=== PATIENT | female | born 1995 | race Hispanic/Latino ===

== ENCOUNTER 2020-07-07 03:42 | Emergency (ER) | payer OTHER ==
[~2020-07-07] VITALS: Ht 167.6 cm; Wt 115.5 kg
[2020-07-07] MEDS ORDERED: ALBU83IN INH (03:49)
[2020-07-07] MEDS ORDERED: diphenhydrAMINE 50MG/ML VIAL (J1200) IV ONE (04:30)
[2020-07-07] MEDS ORDERED: KETOROLAC 30 MG/ML 1ML VIAL IV ONE (04:30)
[2020-07-07] MEDS ORDERED: NS 1,000 ML IV ONE (04:30)
[2020-07-07] MEDS ORDERED: ACETAMINOPHEN 500 MG TAB PO ONE (04:30)
[2020-07-07] MEDS ORDERED: METOCLOPRAMIDE INJ 10MG/2ML VIAL (J2765 PER 1) IV ONE (04:30)
[2020-07-07] MEDS ORDERED: dexameTHASONE 20MG/5ML VIAL (J1100 PER 1MG) IV ONE (05:45)
[2020-07-07] MEDS ORDERED: MAG SULF 1GM/100ML (MAG RUN) 1 GM in IV 1 EA IV ONE (05:45)
[2020-07-07 06:45] VITALS: BP 125/66
== END 2020-07-07 07:00 | disposition home or self-care (01) ==
LOC: M ED 03:42
DX: G43.909 Migraine, unspecified, not intractable, without status migrainosus (principal); J45.909 Unspecified asthma, uncomplicated; Z91.018 Allergy to other foods; Z91.013 Allergy to seafood; Z82.0 Family history of epilepsy and other diseases of the nervous system
CPT/HCPCS: 80047; 84702; 96361; 96374; 96375; 99284; J1100; J1200; J1885; J2765; J3475

== ENCOUNTER 2020-10-02 16:27 | Emergency (ER) | payer OTHER ==
[~2020-10-02] VITALS: Ht 167.6 cm; Wt 117.5 kg
[~2020-10-02 16:27] MED LIST: ALBU83IN INH
[2020-10-02] MEDS ORDERED: VENTAER INH (16:39)
[2020-10-02] MEDS ORDERED: ALBU8.5H INH (16:39)
[2020-10-02] MEDS ORDERED: predniSONE 20 MG TAB PO ONE (17:45)
--- NOTE | 2020-10-02 18:01 | REP ---
INDICATION: wheezing, SOB. COMPARISON: No comparison study. TECHNIQUE: Portable upright AP chest radiograph. FINDINGS: The lungs are well inflated and free of infiltrate. Pleural angles are sharp. Heart size is normal. Pulmonary vasculature is not increased. IMPRESSION: No active disease. <Electronically signed by Clarence Ruffin > 10/02/20 [id number]
[2020-10-02 18:39] LABS: BASO # 0.1 10^3/uL (0.0-0.2); BASO % 0.7 % (0.0-1.0); EOS # 0.3 10^3/uL (0.0-0.5); EOS % 2.7 % (0.0-3.0); HEMATOCRIT 41.7 % (36.0-47.0); LYMPH # 2.8 10^3/uL (1.5-5.0); LYMPH % 26.2 % (24.0-44.0); MEAN CORPUSCULAR HEMOGLOBIN 28.4 pg (27.0-33.0); MEAN CORPUSCULAR HGB CONC 33.6 g/dl (32.0-36.5); MEAN CORPUSCULAR VOLUME 84.6 fl (80.0-96.0); MONO # 0.6 10^3/uL (0.0-0.8); MONO % 5.6 % (0.0-5.0); NEUTROPHILS # 6.8 10^3/uL (1.5-8.5); NEUTROPHILS % 64.4 % (36.0-66.0); PLATELET COUNT, AUTOMATED 403 10^3/uL (150-450); RED BLOOD COUNT 4.93 10^6/uL (4.00-5.40); WHITE BLOOD COUNT 10.5 10^3/uL (4.0-10.0)
[2020-10-02 19:11] VITALS: BP 140/94
[2020-10-02 19:27] LABS: RSV AMPLIFICATION NEGATIVE (NEGATIVE)
[2020-10-02] MEDS ORDERED: PRED20TA PO (19:32)
[2020-10-02] MEDS ORDERED: PROAAER10 INH (19:32)
[2020-10-02] MEDS ORDERED: NAPR-837 PO (19:32)
== END 2020-10-02 19:39 | disposition home or self-care (01) ==
LOC: M ED 16:27
DX: J45.901 Unspecified asthma with (acute) exacerbation (principal); R07.89 Other chest pain; R06.02 Shortness of breath; R06.2 Wheezing; Z91.018 Allergy to other foods; Z91.013 Allergy to seafood

== ENCOUNTER → 2020-10-16 | Outpatient (CLI) | payer OTHER ==
[~2020-10-16] MED LIST changes: +ALBU8.5H INH; +NAPR-837 PO; +PRED20TA PO; +PROAAER10 INH; +VENTAER INH
--- NOTE | 2020-10-16 13:14 | REPPI ---
INDICATION: RIGHT KNEE PAIN COMPARISON: None. TECHNIQUE: AP and lateral views of the right knee FINDINGS: Joint spaces, and surrounding soft tissues appear normal. No evidence for acute or healed injury. No effusion. No significant swelling. No subcutaneous emphysema or foreign body. IMPRESSION: Normal right knee radiographs. <Electronically signed by Reynold Juan > 10/16/20 [id number]
== END ==
LOC: M PLAIMG 10:24
PROVIDERS: ATTEND Physician Assistant
DX: M25.561 Pain in right knee (principal)

== ENCOUNTER → 2020-10-16 | Outpatient (REF) | payer OTHER ==
[2020-10-16 14:44] LABS: HEMATOCRIT 41.9 % (36.0-47.0); HEMOGLOBIN 13.6 g/dl (12.0-15.5); MEAN CORPUSCULAR HEMOGLOBIN 28.2 pg (27.0-33.0); MEAN CORPUSCULAR HGB CONC 32.5 g/dl (32.0-36.5); MEAN CORPUSCULAR VOLUME 86.9 fl (80.0-96.0); PLATELET COUNT, AUTOMATED 368 10^3/uL (150-450); RED BLOOD COUNT 4.82 10^6/uL (4.00-5.40); WHITE BLOOD COUNT 10.3 10^3/uL (4.0-10.0)
[2020-10-16 15:18] LABS: BLOOD UREA NITROGEN 7 MG/DL (7-18); CARBON DIOXIDE LEVEL 27 MEQ/L (21-32); CHLORIDE LEVEL 102 MEQ/L (98-107); CREATININE FOR GFR 0.72 MG/DL (0.55-1.30); GLOMERULAR FILTRATION RATE > 60.0 (>60); GLUCOSE, FASTING 94 MG/DL (70-100); POTASSIUM SERUM 4.3 MEQ/L (3.5-5.1); SODIUM LEVEL 138 MEQ/L (136-145)
[2020-10-16 15:19] LABS: ALT/SGPT 32 U/L (12-78); BILIRUBIN,TOTAL 0.3 MG/DL (0.2-1.0); CALCIUM LEVEL 9.7 MG/DL (8.5-10.1); CHOLESTEROL LEVEL 245 MG/DL (<200); CHOLESTEROL RISK RATIO 4.152 (<5); HDL CHOLESTEROL 59 MG/DL (>40); LDL CHOLESTEROL 141 MG/DL (<100); NON-HDL-C 186 MG/DL; TOTAL PROTEIN 7.5 GM/DL (6.4-8.2); TRIGLYCERIDES LEVEL 226 MG/DL (<150)
[2020-10-16 16:33] LABS: TOTAL 25(OH) VITAMIN D 9.6 NG/ML (30.0-100.0)
[2020-10-16 19:46] LABS: HEMOGLOBIN A1c 5.6 %
== END ==
LOC: M SFHCPLAZ 10:24
PROVIDERS: ATTEND Physician Assistant
DX: J45.40 Moderate persistent asthma, uncomplicated (principal); Z00.00 Encounter for general adult medical examination without abnormal findings; Z13.29 Encounter for screening for other suspected endocrine disorder; E28.2 Polycystic ovarian syndrome; Z13.220 Encounter for screening for lipoid disorders

== ENCOUNTER 2020-12-09 07:24 | Emergency (ER) | payer MEDICAID ==
[~2020-12-09] VITALS: Ht 167.6 cm; Wt 118.6 kg
[2020-12-09] MEDS ORDERED: NAPR220C14 PO (07:36)
[2020-12-09] MEDS ORDERED: FLOV100A (07:36)
[2020-12-09] MEDS ORDERED: diphenhydrAMINE 50MG/ML VIAL (J1200) IV ONE (07:55)
[2020-12-09] MEDS ORDERED: METOCLOPRAMIDE INJ 10MG/2ML VIAL (J2765 PER 1) IV ONE (07:55)
[2020-12-09] MEDS ORDERED: ACETAMINOPHEN 500 MG TAB PO ONE (07:55)
[2020-12-09] MEDS ORDERED: NS 1,000 ML IV ONE (07:55)
[2020-12-09 10:41] VITALS: BP 135/84
== END 2020-12-09 10:44 | disposition home or self-care (01) ==
LOC: M ED 07:24
DX: G43.909 Migraine, unspecified, not intractable, without status migrainosus (principal); R11.0 Nausea; J45.909 Unspecified asthma, uncomplicated; E28.2 Polycystic ovarian syndrome; J34.9 Unspecified disorder of nose and nasal sinuses; F12.10 Cannabis abuse, uncomplicated; E66.9 Obesity, unspecified; Z79.899 Other long term (current) drug therapy; Z91.018 Allergy to other foods; Z91.013 Allergy to seafood
CPT/HCPCS: 80047; 84702; 96361; 96374; 96375; 99284; J1200; J2765

== ENCOUNTER → 2020-12-13 | Outpatient (CLI) | payer MEDICAID, OTHER ==
[~2020-12-13] MED LIST changes: -ALBU83IN INH; +ALBU83IN NEB; +AMOX500C PO; +FLOV100A INH; +NAPR220C14 PO
--- NOTE | 2020-12-13 09:22 | REP ---
INDICATION: PAIN IN RIGHT KNEE. COMPARISON: Radiographs 10/16/2020. TECHNIQUE: Multiple sequences obtained in the axial, coronal and sagittal planes. FINDINGS: Menisci: There is diffuse increased signal within the peripheral anterior horn of the medial meniscus likely representing a chronic tear and mucoid degeneration. There are 3 small cystic structures along the anterior margin of that portion of meniscus, the largest is centrally and measures approximately 8 x 5 mm. Cruciate ligaments: Intact. Collateral ligaments: Intact. Extensor mechanism/patellar retinacula: Intact. Cartilage: Smooth, no osteochondral defect. There is mild global chondromalacia. There is a more moderate degree of chondromalacia of the central portion of the patella. Bone marrow: Normal signal, no edema or occult fracture. Joint fluid: There is a very small joint effusion. Popliteal region: No cyst. IMPRESSION: There is diffuse increased signal within the peripheral anterior horn of the medial meniscus likely representing a chronic tear and mucoid degeneration. Three small, subcentimeter cysts are seen along the anterior aspect of that portion of the meniscus. Mild global chondromalacia with more moderate degree of chondromalacia of the central patella. <Electronically signed by Fermin Winston > 12/13/20 [id number]
== END ==
LOC: M RAD 07:10
PROVIDERS: ATTEND Orthopaedic Surgery
DX: M22.41 Chondromalacia patellae, right knee (principal)

== ENCOUNTER 2020-12-16 09:26 | Observation (INO) | payer MEDICAID ==
[~2020-12-16] VITALS: Ht 167.6 cm; Wt 118.9 kg
[~2020-12-16 09:26] MED LIST changes: -AMOX500C PO
[2020-12-16] MEDS ORDERED: COMBIVENT RESPIMAT 100-20MCG INHALER 4GM INH STA (09:43)
[2020-12-16] MEDS ORDERED: methylPREDNISolone 125MG 2ML VIAL IV ONE (10:10)
[2020-12-16] MEDS ORDERED: NS 1,000 ML IV ONE (10:10)
[2020-12-16 11:03] LABS: VENOUS BASE EXCESS -1.6 (-2.0-2.0); VENOUS O2 SATURATION 64.1 % (60.0-80.0); VENOUS PARTIAL PRESSURE CO2 43.6 mmHg (38.0-50.0); VENOUS PH 7.359 UNITS (7.330-7.430); VENOUS STANDARD HCO3 22.3 MEQ/L; VENOUS TOTAL CO2 25.4 MEQ/L (24.0-28.0)
[2020-12-16 11:04] LABS: BASO # 0.1 10^3/uL (0.0-0.2); BASO % 0.5 % (0.0-1.0); EOS # 0.2 10^3/uL (0.0-0.5); EOS % 1.3 % (0.0-3.0); HEMATOCRIT 43.2 % (36.0-47.0); HEMOGLOBIN 14.5 g/dl (12.0-15.5); LYMPH # 1.7 10^3/uL (1.5-5.0); LYMPH % 11.8 % (24.0-44.0); MEAN CORPUSCULAR HEMOGLOBIN 29.4 pg (27.0-33.0); MEAN CORPUSCULAR HGB CONC 33.6 g/dl (32.0-36.5); MEAN CORPUSCULAR VOLUME 87.6 fl (80.0-96.0); MONO # 0.8 10^3/uL (0.0-0.8); MONO % 5.2 % (2.0-8.0); NEUTROPHILS # 11.8 10^3/uL (1.5-8.5); NEUTROPHILS % 80.8 % (36.0-66.0); PLATELET COUNT, AUTOMATED 373 10^3/uL (150-450); RED BLOOD COUNT 4.93 10^6/uL (4.00-5.40); WHITE BLOOD COUNT 14.6 10^3/uL (4.0-10.0)
--- NOTE | 2020-12-16 11:19 | REP ---
INDICATION: diff breathing wheezing. COMPARISON: 10/02/2020. TECHNIQUE: SINGLE PORTABLE AP VIEW OF THE CHEST WAS PERFORMED. FINDINGS: THERE IS NO ACUTE INFILTRATE OR PULMONARY EDEMA. LUNGS ARE CLEAR. HEART IS NOT SIGNIFICANTLY ENLARGED. MEDIASTINAL SILHOUETTE IS UNREMARKABLE. THE VISUALIZED OSSEOUS STRUCTURES ARE INTACT. IMPRESSION: NO ACUTE PULMONARY DISEASE. <Electronically signed by Fermin Winston > 12/16/20 [id number]
[2020-12-16] MEDS ORDERED: ONDANSETRON 4MG/2ML VIAL IV ONE (11:30)
[2020-12-16] MEDS ORDERED: ACETAMINOPHEN 325 MG TAB PO ONE (11:30)
[2020-12-16] MEDS: MAG SULF 1GM/100ML (MAG RUN) 1 GM in IV 1 EA IV SCH ×2 (11:43→12:02)
[2020-12-16] MEDS ORDERED: IPRATROPIUM 0.5MG/ALBUTEROL 2.5MG INH SOL UD 3ML (DUONEB) NEB PRN (12:25)
[2020-12-16] MEDS ORDERED: ALBUTEROL 90 MCG/ACT 8GM HFA INHALER INH ONE (12:40)
[2020-12-16 12:50] VITALS: O2SAT 92
[2020-12-16] MEDS ORDERED: ALBUTEROL SULFATE 2.5 MG/0.5 ML INH NEB SOLN NEB PRN (13:25)
[2020-12-16] MEDS: IPRATROPIUM 0.5MG/ALBUTEROL 2.5MG INH SOL UD 3ML (DUONEB) NEB SCH ×3 (13:40→20:48)
--- NOTE | 2020-12-16 14:10 | HPEPDOC ---
[facility] Medical History & Physical Date of Admission Dec 16, 2020 Date of Service: Dec 16, 2020 Attending Physician: Dayana Zamudio MD History and Physical CHIEF COMPLAINT: increased SOB HISTORY OF PRESENT ILLNESS: Patient is a 25 her old female with past medical history of asthma, migraine headaches, PCOS who presented to [facility] emergency room with the chief complaint of increased shortness of breath over the past 2 days. The patient states she's been out of her asthma medications for 2 weeks. She's had increasing coughing nonproductive, wheezing, borderline fever at home, nausea and pleuritic chest pain worse with activity and with deep breathing and coughing. She states her partner has also been sick as well and feels as though she picked up whatever he might of had. She denies diarrhea, abdominal pain, chills, lightheadedness, dizziness, weakness. In the emergency room vital signs show temperature 99.1, respiratory rate 2030, blood pressure 179/77, pulse 52177a, 92% on room air. On arrival the patient was in mild respiratory distress with tripoding, nasal flaring. She was given 125 methylprednisolone, IV magnesium and multiple Combivent treatments which did not improve her breathing. She was given 1 nebulizer treatment which seemed to help some. Resp panel: neg COVID, + Rhinovirus/enterovirus. When ambulated the patient to maintain O2 sat above 92%; however, her heart rate shot up into the 130's. On examination she continued to have wheezing bilaterally, occasional rhonchi. She also sounded congested. Chest x-ray was negative for acute changes. The patient was admitted under observation status for acute asthma exacerbation. REVIEW OF SYSTEMS: Neg except for what is mentioned above PAST MEDICAL HISTORY: Asthma Migraine headaches PCOS PAST SURGICAL HISTORY: none FAMILY HISTORY: HTN, DM SOCIAL HISTORY: Denies smoking, illicit drug use, alcohol use. Lives locally with partner. Full Code. PCP locally. ALLERGIES: Please see below. HOME MEDICATIONS: Please see below. PHYSICAL EXAMINATION: VS: temperature 99.1, respiratory rate 2030, blood pressure 179/77, pulse 37902q, 92% on room air CONSTITUTIONAL: SOB with conversation but not in overt respiratory distress, AAO x 3 EYES: PERRLA, EOM intact, corrective lenses in place HENT, MOUTH: Normocephalic, atraumatic, moist mucous membranes NECK: SUPPLE, no JVD, no lymphadenopathy, no carotid bruit, large diameter CV: sinus tachycardia , S1S2 normal, no murmurs/rubs/gallops RESPIRATORY: Exp wheezing and occasional rhonchi bilaterally, no rales GI: obese abd, BS positive in 4 quadrants, soft, nontender, nondistended, no rebound or guarding, no organomegaly : Deferred MUSCULOSKELETAL: Normal ROM. No cyanosis, clubbing, swelling, joint deformity, extremity edema INTEGUMENTARY: Intact, no rashes, no lesions, no erythema NEUROLOGIC: Cranial Nerves II-XII are intact, no focal deficits PSYCHIATRIC: Mood and affect are normal LABORATORY DATA: Please see below IMAGING: CXR: No acute pulmonary disease ASSESSMENT: 25 her old female with past medical history of asthma, migraine headaches, PCOS admitted under observation status for acute asthma exacerbation likely 2/2 to Rhinovirus/Enterovirus. PLAN: Acute asthma exacerbation likely 2/2 to likely 2/2 to Rhinovirus/Enterovirus, ran out of home medications -WBC 14K, maintaining O2 >90%; however, continued wheezing, rhonchi, SOB with speaking after treatment in ED -HR incr to 130's with ambulation -Starting on duonebs ATC, albuterol PRN, methylprednisolone 60 mg IV Q12Hrs, peak flow daily, walking desat testing in the AM -At discharge, refill all home meds including home neb meds -Encourage conservative treatment for common cold component: symptomatic management and hydration during day Migraine headaches -Stable PCOS -F/u o/p DVT px -Enoxaparin DISPOSITION: Admitted under observation status. Plan is discharge when medically improved. Vital Signs Vital Signs Date Time Temp Pulse Resp B/P (MAP) Pulse Ox O2 Delivery O2 Flow Rate FiO2 12/16/20 13:36 98.0 122 180/91 (120) 95 Nasal Cannula 2.0 12/16/20 10:07 30 Laboratory Data Labs 24H Laboratory Tests 2 12/16/20 10:23: SARS Antigen (LFIA) NEGATIVE 12/16/20 10:43: POC Glucose (Misc Panel) 96, POC Sodium (Misc Panel) 138, POC Potassium (Misc Panel) 4.7, POC Chloride (Misc Panel) 103, POC Total CO2 (Misc Panel) 27.0, POC Blood Urea Nitrogen (Misc Panel 8, POC Ionized Calcium (Misc Panel) 4.5, POC Creatinine (Misc Panel) 0.5L, POC Hematocrit (Misc Panel) 45.0 12/16/20 10:48: Immature Granulocyte % (Auto) 0.4, Neutrophils (%) (Auto) 80.8H, Lymphocytes (%) (Auto) 11.8L, Monocytes (%) (Auto) 5.2, Eosinophils (%) (Auto) 1.3, Basophils (%) (Auto) 0.5, Neutrophils # (Auto) 11.8H, Lymphocytes # (Auto) 1.7, Monocytes # (Auto) 0.8, Eosinophils # (Auto) 0.2, Basophils # (Auto) 0.1, Nucleated Red Blood Cells % (auto) 0.0, Blood Gas Bicarbonate Standard 22.3, Venous Blood pH 7.359, Venous Blood Partial Pressure CO2 43.6, Venous Blood Partial Pressure O2 33.0, Venous Blood Total Carbon Dioxide 25.4, Venous Blood HCO3 24.0, Venous Blood Oxygen Saturation 64.1, Venous Blood Base Excess -1.6, POC Beta HCG, Quantitative < 5.0 CBC/BMP Laboratory Tests 12/16/20 10:48 Microbiology Microbiology 12/16/20 Respiratory Virus Panel (PCR) ([facility]) - Final, Complete Human Rhinovirus/Enterovirus 12/16/20 Blood Culture, Received Pending 12/16/20 Group A Streptococcus Screen ([facility]), Received Pending 12/16/20 Blood Culture, Received Pending Home Medications Scheduled Fluticasone Propionate (Flovent Diskus) 100 Mcg Blst.w.dev, 1 PUFF INH BID Scheduled PRN Albuterol Sulf (Albuterol Sulfate) 2.5 Mg/3 Ml Vial.neb, 1 VIAL NEB Q4H PRN for SOB/WHEEZING Albuterol Sulfate (Albuterol Sulfate Hfa) 8.5 Gm Hfa.aer.ad, 2 PUFFS INH Q6H PRN for SHORTNESS OF BREATH Allergies Coded Allergies: Grape (Verified Allergy, Mild, ITCHY THROAT, 07/07/20) SEAFOOD (Verified Allergy, Mild, RED SKIN & ITCHY THROAT, 07/07/20) A-FIB/CHADSVASC A-FIB History Current/History of A-Fib/PAF?: No Current PO Anticoag Therapy: No Age/Risk Factor Scoring CHADSVASC: CHADSVASC Response (Comments) Value Age Risk Factor Age < 65 years old 0 Gender Risk Factor Female 1 Hx of CHF No 0 Hx of HTN No 0 Hx of Stroke/TIA/or VTE No 0 Hx of Diabetes No 0 Hx of Vascular Disease No 0 Total 1 Treatment Treatment ordered: Other Other anticoagulant ordered: Dayana Jennings MD Dec 16, 2020 14:10
[2020-12-16 14:42] VITALS: BP 143/96
[2020-12-16] MEDS: ACETAMINOPHEN TAB 650MG DOSE (2X325MG) PO PRN ×2 (16:06→22:59)
[2020-12-16 17:30] VITALS: BP 139/92
[2020-12-16] MEDS: KETOROLAC 30 MG/ML 1ML VIAL IV PRN (17:38)
[2020-12-16 22:00] VITALS: BP 131/84
[2020-12-16] MEDS: methylPREDNISolone 125MG 2ML VIAL IV SCH (22:54)
[2020-12-17] MEDS: IPRATROPIUM 0.5MG/ALBUTEROL 2.5MG INH SOL UD 3ML (DUONEB) NEB SCH ×3 (02:44→13:37)
[2020-12-17 06:00] VITALS: BP 115/73
[2020-12-17 06:26] LABS: HEMATOCRIT 40.8 % (36.0-47.0); HEMOGLOBIN 13.3 g/dl (12.0-15.5); MEAN CORPUSCULAR HEMOGLOBIN 29.4 pg (27.0-33.0); MEAN CORPUSCULAR HGB CONC 32.6 g/dl (32.0-36.5); MEAN CORPUSCULAR VOLUME 90.1 fl (80.0-96.0); PLATELET COUNT, AUTOMATED 380 10^3/uL (150-450); RED BLOOD COUNT 4.53 10^6/uL (4.00-5.40); WHITE BLOOD COUNT 15.9 10^3/uL (4.0-10.0)
[2020-12-17 06:49] LABS: BLOOD UREA NITROGEN 14 MG/DL (7-18); CARBON DIOXIDE LEVEL 23 MEQ/L (21-32); CHLORIDE LEVEL 107 MEQ/L (98-107); CREATININE FOR GFR 0.67 MG/DL (0.55-1.30); GLOMERULAR FILTRATION RATE > 60.0 (>60); GLUCOSE, FASTING 175 MG/DL (70-100); POTASSIUM SERUM 4.4 MEQ/L (3.5-5.1); SODIUM LEVEL 137 MEQ/L (136-145)
[2020-12-17] MEDS: ENOXAPARIN 40MG/0.4ML SYRINGE (J1650 PER 10MG) SC SCH (09:30)
[2020-12-17] MEDS: KETOROLAC 30 MG/ML 1ML VIAL IV PRN (10:06)
[2020-12-17] MEDS: methylPREDNISolone 125MG 2ML VIAL IV SCH ×2 (10:07→22:33)
[2020-12-17] MEDS: ACETAMINOPHEN TAB 650MG DOSE (2X325MG) PO PRN (11:55)
[2020-12-17 14:00] VITALS: BP 132/72
--- NOTE | 2020-12-17 15:42 | ECGEPIP ---
[facility] - ED Test Date: 2020-12-16 Pat Name: SHOSHANA PELAEZ Department: Room: [place] [address] Gender: Female Offensive Coordinator: RASHAD : 1995 Requested By: MICHELLE Goss PA-C Order Number: [id number] Reading MD: Petr Vasquez Measurements Intervals [place] Rate: 113 P: 63 TN: 122 QRS: 56 QRSD: 96 T: 51 QT: 338 QTc: 463 Interpretive Statements Sinus tachycardia Comparison tracing not on file Electronically Signed on 12-17-2020 15:41:59 EDT by Petr Vasquez
[2020-12-17] MEDS ORDERED: LEVALBUTEROL 1.25 MG/0.5 ML CONCENTRATE NEB NEB PRN (18:05)
--- NOTE | 2020-12-17 18:08 | IPNPDOC ---
Date Seen The patient was seen on 12/17/20. Progress Note SUBJECTIVE: Peak flow 250, 50% of predicted goal. Gave good effort per respiratory. Continues to have wheezing, feels mildly improved. Denies chest pain, fevers, chills, coughing, n/v/d. OBJECTIVE: PHYSICAL EXAMINATION: VS: Please see below CONSTITUTIONAL: SOB with conversation but not in overt respiratory distress, AAO x 3 EYES: PERRLA, EOM intact, corrective lenses in place HENT, MOUTH: Normocephalic, atraumatic, moist mucous membranes NECK: SUPPLE, no JVD, no lymphadenopathy, no carotid bruit, large diameter CV: sinus tachycardia , S1S2 normal, no murmurs/rubs/gallops RESPIRATORY: Exp wheezing and occasional rhonchi bilaterally persist , no rales GI: obese abd, BS positive in 4 quadrants, soft, nontender, nondistended, no rebound or guarding, no organomegaly : Deferred MUSCULOSKELETAL: Normal ROM. No cyanosis, clubbing, swelling, joint deformity, extremity edema INTEGUMENTARY: Intact, no rashes, no lesions, no erythema NEUROLOGIC: Cranial Nerves II-XII are intact, no focal deficits PSYCHIATRIC: Mood and affect are normal LABORATORY DATA: Please see below IMAGING: CXR: No acute pulmonary disease ASSESSMENT: 25 her old female with past medical history of asthma, migraine headaches, PCOS admitted under observation status for acute asthma exacerbation likely 2/2 to Rhinovirus/Enterovirus. PLAN: Acute asthma exacerbation likely 2/2 to likely 2/2 to Rhinovirus/Enterovirus, ran out of home medications -WBC 15.9K (partly likely steroid induced), did well with walking test maintaining O2 >93%; however, still very wheezy -Peak flow 250, 50% of predicted goal -HR incr and likely 2/2 to albuterol tx -D/gracie duonebs ATC, albuterol PRN -Started on levalbuterol, c/w methylprednisolone 60 mg IV Q12Hrs, peak flow daily -At discharge, refill all home meds including home neb meds -Encourage conservative treatment for common cold component: symptomatic m anagement and hydration during day Migraine headaches -Stable PCOS -F/u o/p DVT px -Enoxaparin DISPOSITION: Remains under observation status. If stays longer than 4/12 will make inpatient. Plan is discharge home when medically improved. VS, I&O, 24H, Fishbone Vital Signs/I&O Vital Signs Date Time Temp Pulse Resp B/P (MAP) Pulse Ox O2 Delivery O2 Flow Rate FiO2 12/17/20 14:00 98.5 126 17 132/72 (92) 94 Room Air 12/16/20 13:36 2.0 I&O- Last 24 Hours up to 6 AM 12/17/20 06:00 Intake Total 2610 ml Output Total 700 ml Balance 1910 ml Laboratory Data 24H LABS Laboratory Tests 2 12/17/20 05:44: Nucleated Red Blood Cells % (auto) 0.0, Anion Gap 7L, Glomerular Filtration Rate > 60.0, Calcium Level 9.0 CBC/BMP Laboratory Tests 12/17/20 05:44 Microbiology Microbiology 12/16/20 Respiratory Virus Panel (PCR) ([facility]) - Final, Complete Human Rhinovirus/Enterovirus 12/16/20 Blood Culture - Preliminary, Resulted No growth after 24 hours . All specim... 12/16/20 Group A Streptococcus Screen ([facility]), Received Pending 12/16/20 Blood Culture - Preliminary, Resulted No growth after 24 hours . All specim... Current Medications Current Medications Medications (Trade) Dose Ordered Sig/Gavi Route PRN Reason Start Time Stop Time Status Last Admin Dose Admin Acetaminophen (Tylenol Tab) 650 mg Q4H PRN PO PAIN OR FEVER 12/16/20 13:25 12/17/20 11:55 Albuterol Sulfate (Proventil Neb) 2.5 mg Q2HP PRN NEB SOB/WHEEZING 12/16/20 13:25 12/16/20 17:29 Albuterol/ Ipratropium (Combivent Respimat 100-20mcg) 2 puff NOW STAT INH 12/16/20 09:43 12/16/20 09:44 DC 12/16/20 10:03 Albuterol/ Ipratropium (Duoneb (Ipr 0.5mg/Alb 2.5mg)) 3 ml Q20M PRN NEB SHORTNESS OF BREATH 12/16/20 12:25 12/16/20 13:33 DC 12/16/20 13:26 Albuterol/ Ipratropium (Duoneb (Ipr 0.5mg/Alb 2.5mg)) 3 ml RQ6H NEB 12/16/20 14:00 12/17/20 13:37 Enoxaparin Sodium (Lovenox) 40 mg DAILY SC 12/17/20 09:00 12/17/20 09:30 Home Med (Med Rec Complete!) ASDIRECTED XX 12/16/20 13:20 12/16/20 13:23 DC Ketorolac Tromethamine (ToRADol) 15 mg Q6H PRN IV PAIN 12/16/20 17:30 12/21/20 17:29 12/17/20 10:06 Magnesium Sulfate/ Dextrose 1 gm/IV Miscellaneous Supplies 100 ml @ 600 mls/hr Q10M IV 12/16/20 11:30 12/16/20 11:49 DC 12/16/20 12:02 Methylprednisolone (SOLUmedrol) 60 mg Q12H IV 12/16/20 23:00 12/17/20 10:07 Allergies Coded Allergies: Grape (Verified Allergy, Mild, ITCHY THROAT, 07/07/20) SEAFOOD (Verified Allergy, Mild, RED SKIN & ITCHY THROAT, 07/07/20) Dayana Zamudio MD Dec 17, 2020 18:07
[2020-12-17] MEDS: LEVALBUTEROL 1.25 MG/0.5 ML CONCENTRATE NEB NEB SCH (21:58)
[2020-12-17 22:00] VITALS: BP 118/64
[2020-12-18 06:00] VITALS: BP 127/80
[2020-12-18] MEDS ORDERED: AMOXICILLIN SUSP 250MG/5ML 100ML BOTTLE (FOR INPATIENT ORDERS) PO SCH (06:00)
[2020-12-18 06:32] LABS: HEMATOCRIT 42.3 % (36.0-47.0); HEMOGLOBIN 13.7 g/dl (12.0-15.5); MEAN CORPUSCULAR HEMOGLOBIN 29.3 pg (27.0-33.0); MEAN CORPUSCULAR HGB CONC 32.4 g/dl (32.0-36.5); MEAN CORPUSCULAR VOLUME 90.4 fl (80.0-96.0); PLATELET COUNT, AUTOMATED 416 10^3/uL (150-450); RED BLOOD COUNT 4.68 10^6/uL (4.00-5.40); WHITE BLOOD COUNT 20.2 10^3/uL (4.0-10.0)
[2020-12-18 07:03] LABS: BLOOD UREA NITROGEN 15 MG/DL (7-18); CALCIUM LEVEL 9.1 MG/DL (8.5-10.1); CARBON DIOXIDE LEVEL 25 MEQ/L (21-32); CHLORIDE LEVEL 107 MEQ/L (98-107); CREATININE FOR GFR 0.74 MG/DL (0.55-1.30); GLOMERULAR FILTRATION RATE > 60.0 (>60); GLUCOSE, FASTING 177 MG/DL (70-100); POTASSIUM SERUM 4.3 MEQ/L (3.5-5.1); SODIUM LEVEL 140 MEQ/L (136-145)
[2020-12-18] MEDS: LEVALBUTEROL 1.25 MG/0.5 ML CONCENTRATE NEB NEB SCH ×2 (08:02→11:33)
[2020-12-18] MEDS ORDERED: ALBU8.5H INH (08:32)
[2020-12-18] MEDS ORDERED: FLOV100A INH (08:32)
[2020-12-18] MEDS ORDERED: ALBU83IN NEB (08:32)
[2020-12-18] MEDS ORDERED: AMOX500C PO (08:33)
[2020-12-18] MEDS ORDERED: PRED20TA PO (08:35)
[2020-12-18] MEDS: KETOROLAC 30 MG/ML 1ML VIAL IV PRN (10:13)
[2020-12-18] MEDS: methylPREDNISolone 125MG 2ML VIAL IV SCH (10:13)
[2020-12-18] MEDS: ENOXAPARIN 40MG/0.4ML SYRINGE (J1650 PER 10MG) SC SCH (10:13)
--- NOTE | 2020-12-18 11:41 | DS.PDOC ---
Discharge Summary General Date of Admission Dec 16, 2020 at 09:27 Date of Discharge 12/18/20 Attending Physician: Dayana Zamudio MD Discharge Summary HISTORY OF PRESENT ILLNESS: Patient is a 25 her old female with past medical history of asthma, migraine headaches, PCOS who presented to [facility] emergency room with the chief complaint of increased shortness of breath over the past 2 days. The patient states she's been out of her asthma medications for 2 weeks. She's had increas ing coughing nonproductive, wheezing, borderline fever at home, nausea and pleuritic chest pain worse with activity and with deep breathing and coughing. She states her partner has also been sick as well and feels as though she picked up whatever he might of had. She denies diarrhea, abdominal pain, chills, lightheadedness, dizziness, weakness. In the emergency room vital signs show temperature 99.1, respiratory rate 2030, blood pressure 179/77, pulse 75145q, 92% on room air. On arrival the patient was in mild respiratory distress with tripoding, nasal flaring. She was given 125 methylprednisolone, IV magnesium and multiple Combivent treatments which did not improve her breathing. She was given 1 nebulizer treatment which seemed to help some. Resp panel: neg COVID, + Rhinovirus/enterovirus. When ambulated the patient to maintain O2 sat above 92%; however, her heart rate shot up into the 130's. On examination she continued to have wheezing bilaterally, occasional rhonchi. She also sounded congested. Chest x-ray was negative for acute changes. The patient was admitted under observation status for acute asthma exacerbation. HOSPITAL COURSE: Patient was continued on IV methylprednisolone for her hospitalization. Peak flows were done daily, ATC and PRN levalbuterol were administered. She maintained O2 >93% with ambulation. Throat culture + for Streptococcus Group C, patient was started on amoxicillin PO TID. WBC incr but that was likely 2/2 to steroids, not worsened infection. HR improved, RR normalized. By 12/18/20 patient was much improved. She will be discharged with refills on all home medications including all inhalers, nebulizer solutions. She will be given 7 day prednisone taper, amoxicillin TID x 5 days to complete. Advised she f/u with PCP within 1-2 weeks after discharge. Encourage conservative treatment for common cold component: symptomatic management and hydration during day. Other chronic issues remained stable. PAST MEDICAL HISTORY: Asthma Migraine headaches PCOS PAST SURGICAL HISTORY: none FAMILY HISTORY: HTN, DM SOCIAL HISTORY: Denies smoking, illicit drug use, alcohol use. Lives locally with partner. Full Code. PCP locally. ALLERGIES: Please see below. DISCHARGE MEDS: Please see below PHYSICAL EXAMINATION: VS: Please see below CONSTITUTIONAL: NAD, resting in bed, AAO x 3 EYES: PERRLA, EOM intact, corrective lenses in place HENT, MOUTH: Normocephalic, atraumatic, moist mucous membranes NECK: SUPPLE, no JVD, no lymphadenopathy, no carotid bruit, large diameter CV: sinus rhythm , S1S2 normal, no murmurs/rubs/gallops RESPIRATORY: very mild exp wheezing- much improved , no rales GI: obese abd, BS positive in 4 quadrants, soft, nontender, nondistended, no rebound or guarding, no organomegaly : Deferred MUSCULOSKELETAL: Normal ROM. No cyanosis, clubbing, swelling, joint deformity, extremity edema INTEGUMENTARY: Intact, no rashes, no lesions, no erythema NEUROLOGIC: Cranial Nerves II-XII are intact, no focal deficits PSYCHIATRIC: Mood and affect are normal LABORATORY DATA: Please see below IMAGING: CXR: No acute pulmonary disease ASSESSMENT: 25 her old female with past medical history of asthma, migraine headaches, PCOS admitted under observation status for acute asthma exacerbation likely 2/2 to Rhinovirus/Enterovirus. PLAN: Acute asthma exacerbation likely 2/2 to likely 2/2 to Rhinovirus/Enterovirus, ran out of home medications -WBC incr but likely steroid induced, decreased wheezing, maintaining O2 on RA well at rest and ambulation -C/w all home nebulizers and inhalers, added PO prednisone taper x 7 days. Sent in refills on home meds. -Encourage conservative treatment for common cold component: symptomatic management and hydration during day -F/u with PCP and encourage staying on top of refills for home meds Streptococcus Group C pharyngitis -Amoxicillin 500 mg PO TID x 5 days -Advised patient to have get tested and treated as well. Migraine headaches -Stable PCOS -F/u o/p DISPOSITION: Discharged to f/u with PCP TIME SPENT ON DISCHARGE: 35 minutes. Vital Signs/I&Os Vital Signs Date Time Temp Pulse Resp B/P (MAP) Pulse Ox O2 Delivery O2 Flow Rate FiO2 12/18/20 06:00 98.4 91 18 127/80 (96) 95 12/17/20 14:00 Room Air 12/16/20 13:36 2.0 I&O- Last 24 Hours up to 6 AM 12/18/20 06:00 Intake Total 1500 ml Output Total 600 ml Balance 900 ml Laboratory Data Labs 24H Laboratory Tests 2 12/18/20 06:19: Nucleated Red Blood Cells % (auto) 0.0, Anion Gap 8, Glomerular Filtration Rate > 60.0, Calcium Level 9.1 CBC/BMP Laboratory Tests 12/18/20 06:19 Microbiology Microbiology 12/16/20 Respiratory Virus Panel (PCR) ([facility]) - Final, Complete Human Rhinovirus/Enterovirus 12/16/20 Blood Culture - Preliminary, Resulted No Growth after 48 hours. All Specime... 12/16/20 Group A Streptococcus Screen ([facility]) - Final, Complete Streptococcus Group C 12/16/20 Blood Culture - Preliminary, Resulted No Growth after 48 hours. All Specime... Discharge Medications Scheduled Amoxicillin (Amoxicillin) 500 Mg Capsule, 500 MG PO TID Fluticasone Propionate (Flovent Diskus) 100 Mcg Blst.w.dev, 1 PUFF INH BID Prednisone (Prednisone) 20 Mg Tablet, 60 MG PO DAILY prednisone taper over 7 days: 60 mg PO x 3 days, 40 mg PO x 3 days, 20 mg PO x 1 day Scheduled PRN Albuterol Sulf (Albuterol Sulfate) 2.5 Mg/3 Ml Vial.neb, 1 VIAL NEB Q6HP PRN for SOB/WHEEZING Albuterol Sulfate (Albuterol Sulfate Hfa) 8.5 Gm Hfa.aer.ad, 2 PUFFS INH Q6HP PRN for SHORTNESS OF BREATH Allergies Coded Allergies: Grape (Verified Allergy, Mild, ITCHY THROAT, 07/07/20) SEAFOOD (Verified Allergy, Mild, RED SKIN & ITCHY THROAT, 07/07/20) Dayana Zamudio MD Dec 18, 2020 11:41
== END 2020-12-18 12:38 | disposition home or self-care (01) ==
LOC: M ED 09:26 → M ED INP 09:27 → ENRESERV 13:58 → M MSPAV 14:22
PROVIDERS: ADMIT Internal Medicine; ATTEND Internal Medicine
DX: J45.901 Unspecified asthma with (acute) exacerbation (principal); B34.8 Other viral infections of unspecified site; J02.0 Streptococcal pharyngitis; B95.4 Other streptococcus as the cause of diseases classified elsewhere; G43.909 Migraine, unspecified, not intractable, without status migrainosus; E28.2 Polycystic ovarian syndrome; Z79.52 Long term (current) use of systemic steroids; Z79.51 Long term (current) use of inhaled steroids; Z91.018 Allergy to other foods; Z91.013 Allergy to seafood; Z79.899 Other long term (current) drug therapy
CPT/HCPCS: 36415; 71045; 80047; 80048; 82803; 84702; 85025; 85027; 87040; 87798; 87880; 93005; 94640; 94664; 99285; J1650; J1885; J2405; J2930; J3475

== ENCOUNTER 2020-12-20 09:42 | Emergency (ER) | payer MEDICAID ==
[~2020-12-20] VITALS: Ht 167.6 cm; Wt 118.2 kg
[2020-12-20 09:42] VITALS: BP 173/105
[~2020-12-20 09:42] MED LIST changes: +AMOX500C PO
[2020-12-20] MEDS ORDERED: ONDANSETRON 4MG/2ML VIAL IV ONE (10:20)
[2020-12-20] MEDS ORDERED: NS 1,000 ML IV ONE (10:20)
[2020-12-20] MEDS ORDERED: KETOROLAC 30 MG/ML 1ML VIAL IV ONE (10:20)
[2020-12-20 10:54] LABS: BASO % 0.3 % (0.0-1.0); EOS # 0.2 10^3/uL (0.0-0.5); EOS % 1.4 % (0.0-3.0); HEMATOCRIT 41.5 % (36.0-47.0); HEMOGLOBIN 13.8 g/dl (12.0-15.5); LYMPH # 2.6 10^3/uL (1.5-5.0); LYMPH % 16.4 % (24.0-44.0); MEAN CORPUSCULAR HEMOGLOBIN 28.8 pg (27.0-33.0); MEAN CORPUSCULAR HGB CONC 33.3 g/dl (32.0-36.5); MEAN CORPUSCULAR VOLUME 86.5 fl (80.0-96.0); MONO # 0.9 10^3/uL (0.0-0.8); MONO % 5.9 % (2.0-8.0); NEUTROPHILS % 75.3 % (36.0-66.0); PLATELET COUNT, AUTOMATED 419 10^3/uL (150-450); WHITE BLOOD COUNT 15.9 10^3/uL (4.0-10.0)
[2020-12-20 11:15] LABS: ALBUMIN 3.8 GM/DL (3.2-5.2); ALT/SGPT 31 U/L (12-78); BILIRUBIN,DIRECT 0.2 MG/DL (0.0-0.2); BILIRUBIN,TOTAL 0.4 MG/DL (0.2-1.0); BLOOD UREA NITROGEN 15 MG/DL (7-18); CARBON DIOXIDE LEVEL 27 MEQ/L (21-32); CHLORIDE LEVEL 103 MEQ/L (98-107); CREATININE FOR GFR 0.76 MG/DL (0.55-1.30); GLOMERULAR FILTRATION RATE > 60.0 (>60); GLUCOSE, FASTING 118 MG/DL (70-100); POTASSIUM SERUM 3.8 MEQ/L (3.5-5.1); SODIUM LEVEL 139 MEQ/L (136-145); TOTAL PROTEIN 7.4 GM/DL (6.4-8.2)
--- NOTE | 2020-12-20 11:30 | REP ---
INDICATION: renal colic, cant urinate COMPARISON: None TECHNIQUE: Axial noncontrast images from the lung bases to the pubic symphysis with coronal and sagittal reformations. This CT examination was performed using the following dose reduction techniques: Automated exposure control, adjustment of mA and/or kv according to the patient's size, and use of iterative reconstruction technique. FINDINGS: Acute right-sided obstructive uropathy including edematous enlargement to the right kidney with perinephric stranding and hydroureteronephrosis with a 3 mm calculus at the ureterovesical junction (series 201 images 132-133). Few small nonobstructing bilateral nephroliths are identified measuring up to 2.5 mm. Liver, spleen, pancreas, gallbladder, and bilateral adrenal glands are normal for noncontrast evaluation. The enteric system is without obstruction or acute inflammatory process. Normal terminal ileum and appendix identified in the right lower quadrant. Pelvis demonstrates normal bladder and age-appropriate uterus/adnexa. No ascites. No free air. No adenopathy. Abdominal aorta without aneurysm. Musculoskeletal structures are intact. IMPRESSION: Acute right-sided obstructive uropathy with a 3 mm calculus at the ureterovesical junction. Small bilateral nonobstructing nephroliths up to 2.5 mm in the right kidney and 2 mm in the left kidney. <Electronically signed by Reynold Juan > 12/20/20 1124
[2020-12-20 12:05] LABS: BILIRUBIN, URINE MANUAL NEGATIVE (NEGATIVE); GLUCOSE, URINE (UA) MANUAL NEGATIVE (NEGATIVE); KETONE, URINE MANUAL NEGATIVE (NEGATIVE); UROBILINOGEN, URINE MANUAL NORMAL (NORMAL)
[2020-12-20 12:12] LABS: BACTERIA, URINE SMALL AMOUNT; RBC, URINE 40-50 /hpf (0-3); SQUAMOUS EPITHELIAL CELL URINE SMALL AMOUNT /hpf (SMALL AMT)
[2020-12-20] MEDS ORDERED: ONDA4TAB6 PO (12:35)
[2020-12-20] MEDS ORDERED: FLOM0.4C39 PO (12:35)
[2020-12-20] MEDS ORDERED: KETO10TAB PO (12:35)
== END 2020-12-20 12:44 | disposition home or self-care (01) ==
LOC: M ED 09:42
DX: N20.1 Calculus of ureter (principal); Z91.013 Allergy to seafood; Z91.018 Allergy to other foods
CPT/HCPCS: 36415; 74176; 80048; 80076; 81000; 84702; 85025; 96361; 96374; 96375; 99284; J1885; J2405

== ENCOUNTER → 2021-01-12 | Outpatient (CLI) | payer MEDICAID ==
[~2021-01-12] MED LIST changes: +FLOM0.4C39 PO; +KETO10TAB PO; +ONDA4TAB6 PO
[2021-01-12 12:05] LABS: BASO # 0.1 10^3/uL (0.0-0.2); BASO % 0.9 % (0.0-1.0); EOS # 0.5 10^3/uL (0.0-0.5); EOS % 5.9 % (0.0-3.0); HEMATOCRIT 38.8 % (36.0-47.0); LYMPH # 2.3 10^3/uL (1.5-5.0); LYMPH % 26.6 % (24.0-44.0); MEAN CORPUSCULAR HEMOGLOBIN 29.3 pg (27.0-33.0); MEAN CORPUSCULAR HGB CONC 33.5 g/dl (32.0-36.5); MEAN CORPUSCULAR VOLUME 87.4 fl (80.0-96.0); MONO # 0.7 10^3/uL (0.0-0.8); MONO % 8.3 % (2.0-8.0); NEUTROPHILS % 58.1 % (36.0-66.0); PLATELET COUNT, AUTOMATED 391 10^3/uL (150-450); RED BLOOD COUNT 4.44 10^6/uL (4.00-5.40); WHITE BLOOD COUNT 8.7 10^3/uL (4.0-10.0)
[2021-01-12 12:36] LABS: ERYTHROCYTE SEDIMENTATION RATE 27 mm/hr (0-20)
[2021-01-12 12:47] LABS: ALBUMIN 3.8 GM/DL (3.2-5.2); ALT/SGPT 36 U/L (12-78); BILIRUBIN,TOTAL 0.3 MG/DL (0.2-1.0); BLOOD UREA NITROGEN 11 MG/DL (7-18); CARBON DIOXIDE LEVEL 26 MEQ/L (21-32); CHLORIDE LEVEL 109 MEQ/L (98-107); CREATININE FOR GFR 0.56 MG/DL (0.55-1.30); GLOMERULAR FILTRATION RATE > 60.0 (>60); GLUCOSE, FASTING 78 MG/DL (70-100); POTASSIUM SERUM 4.2 MEQ/L (3.5-5.1); RHEUMATOID FACTOR QUANT < 10.0 IU/ML (<15.0); SODIUM LEVEL 139 MEQ/L (136-145); TOTAL PROTEIN 6.9 GM/DL (6.4-8.2)
[2021-01-13 13:07] LABS: ANTINUCLEAR ANTIBODIES DIRECT Negative (Negative)
== END ==
LOC: M PLALAB 10:38
PROVIDERS: ATTEND Psychiatry & Neurology Neurology
DX: R51.9 Headache, unspecified (principal)

== ENCOUNTER → 2021-01-15 | Outpatient (REF) | payer MEDICAID | LOC: M SFHCWAGY 19:08 | PROVIDERS: ATTEND Nurse Practitioner Women's Health | DX: Z12.4 Encounter for screening for malignant neoplasm of cervix (principal) ==